=== PATIENT | male | born 1955 | race Caucasian/White ===

== ENCOUNTER 2018-12-22 16:39 | Emergency (ER) | payer MEDICAID ==
[~2018-12-22] VITALS: Ht 170.2 cm; Wt 64.0 kg
[~2018-12-22 16:39] MED LIST: INSULIN
[2018-12-22] MEDS: LIDOCAINE HCL 2% JELLY 5ML TOP ONE (23:46)
[2018-12-22] MEDS: HYDROCODONE/ACETAMINOPHEN 10/325MG TABLET PO ONE (23:46)
[2018-12-22] MEDS: KETOROLAC 60MG/2ML VIAL IM ONE (23:47)
[2018-12-23 00:05] VITALS: BP 159/84
== END 2018-12-23 00:06 | disposition home or self-care (01) ==
LOC: ER 16:39
DX: K64.9 Unspecified hemorrhoids (principal); E11.9 Type 2 diabetes mellitus without complications; E78.00 Pure hypercholesterolemia, unspecified; I10 Essential (primary) hypertension; Z98.890 Other specified postprocedural states
CPT/HCPCS: 99283; J1885